=== PATIENT | female | born 1950 | race Caucasian/White ===

== ENCOUNTER 2019-02-21 11:17 | Emergency (ER) | payer OTHER ==
[~2019-02-21] VITALS: Ht 167.6 cm; Wt 79.4 kg
[2019-02-21] MEDS ORDERED: PREMARIN0.625 MG (11:35)
[2019-02-21] MEDS ORDERED: VENTOLIN HFA INH8 GM INH (11:36)
[2019-02-21] MEDS ORDERED: TOLTERODINE TART4 MG PO (11:36)
[2019-02-21] MEDS ORDERED: OMEPRAZOLE 20 M20 M1 PO (11:36)
[2019-02-21] MEDS ORDERED: FLONASE 0.05%50 MCG NARES (11:36)
[2019-02-21] MEDS ORDERED: ADVAIR 100-501 EACH INH (11:36)
[2019-02-21] MEDS ORDERED: FISH OIL 1,001000 M3 PO (11:37)
[2019-02-21] MEDS ORDERED: VASCEPA1 GM PO (11:37)
[2019-02-21] MEDS ORDERED: SUPER THERAVIT1 EACH PO (11:37)
[2019-02-21] MEDS ORDERED: ZYRTEC10 MG PO (11:37)
[2019-02-21] MEDS ORDERED: CALCIUM500 MG PO (11:38)
[2019-02-21] MEDS ORDERED: BIOTIN1 M1 PO (11:38)
[2019-02-21 11:55] LABS: INFLUENZA A ANTIGEN Negative (Negative); INFLUENZA B ANTIGEN Negative (Negative)
[2019-02-21 12:32] VITALS: BP 155/99
== END 2019-02-21 12:32 | disposition home or self-care (01) ==
LOC: M.ERS 11:17
PROVIDERS: Family Medicine
DX: J02.0 Streptococcal pharyngitis (principal); E78.00 Pure hypercholesterolemia, unspecified; J45.909 Unspecified asthma, uncomplicated